=== PATIENT | female | born 1990 | race Caucasian/White ===

== ENCOUNTER 2017-11-06 04:29 | Inpatient (IN) ==
[~2017-11-06 04:29] MED LIST: *HR* Nalbuphine 10 MG/ML AMPUL IVP PRN; Famotidine 20 MG/2 ML VIAL IVP PRN; Lidocaine 1% 20 ML MDV INFILT PRN; Metoclopramide 10 MG/2 ML VIAL IVP PRN; Naloxone 0.4 MG/ML INJ IVP PRN; Ondansetron 4 MG/2 ML VIAL IVP PRN
[2017-11-06] MEDS ORDERED: Ringers Solution, Lactated 1,000 ML IVC SCH (04:30)
[2017-11-06 05:18] LABS: Basophils # 0.1 K/mcL (0.0-0.2); Basophils % 0.3 %; Eosinophils # 0.2 K/mcL (0.0-0.6); Eosinophils % 1.2 %; Hematocrit 41.6 % (35.3-44.9); Hemoglobin 14.6 g/dL (11.5-15.4); Immature Granulocytes % 0.6 % (0-4); Lymphocytes # 2.8 K/mcL (0.6-4.6); Lymphocytes % 17.3 %; Mean Corpuscular HGB Conc 35.1 g/dL (31.6-35.5); Mean Corpuscular Hemoglobin 31.7 pg (28.0-33.3); Mean Corpuscular Volume 90.4 fL (83.0-100.0); Mean Platelet Volume 11.3 fL (9.4-12.4); Monocytes # 0.9 K/mcL (0.0-1.3); Monocytes % 5.5 %; Platelet Count 252 K/mcL (140-400); Red Cell Distribution Width 12.2 % (11.5-14.5); Segmented Neutrophils % 75.1 %
[2017-11-06 05:35] LABS: Amphetamine Screen,Urine Negative ng/mL (Cutoff=1000); Barbiturate Screen,Urine Negative ng/mL (Cutoff=200); Benzodiazepines Screen,Urine Negative ng/mL (Cutoff=200); Cannabinoid Screen,Urine Negative ng/mL (Cutoff = 50); Cocaine Screen,Urine Negative ng/mL (Cutoff= 300); Opiate Screen,Urine Negative ng/mL (Cutoff=300); Phencyclidine Screen,Urine Negative ng/mL (Cutoff=25)
--- NOTE | 2017-11-06 05:45 | OB/GYN History & Physical ---
Date of Encounter: 11/06/17 Time of Encounter: 05:42 Assessment and Plan (1) 38 weeks gestation of Current visit: Yes Status: Acute (2) SROM (spontaneous rupture of membranes) Current visit: Yes Status: Acute Admit to labor and delivery Nubain and epidural as desired Pitocin if no change in 2 hours Anticipate History of Present Illness HPI: Ms. Coreas is a 27 year old female 38+3 weeks gestation presents to triage with complaints of rupture membranes at 1 AM. Spontaneous rupture membranes at clear fluid, reports good movement, occasional contractions, denies vaginal bleeding. care with Dr. Downs. course complicated with gap in care, [place]. Labs: A+, rubella and varicella immune, GBS negative, all other serologies negative Past Med Surg Social Fam HX - Past Medical History Medical history: no medical history Psychiatric history: anxiety, depression - Past Surgical History Additional surgical history: T&A - Social History Smoking Status: Current every day smoker Packs per day: 1.5ppd Smokeless Tobacco Status: No Alcohol use: none Drug use: none - Family History Sister Age: 30 Hx Family Neuromuscular Disorders: Yes (herinated disk) Obstetrical History - Pregnancies : 1 Para: 0 Term: 0 : 0 Ab's: 0 Livin Medications and Allergies Vit Calc,Iron,Folic [ Vitamins] 11/06/17 [History] 3 Allergy/AdvReac Type Severity Reaction Status Date / Time Amoxicillin [From Augmentin] Allergy See Verified 11/06/17 04:39 Comments clavulanic acid Allergy See Verified 11/06/17 04:39 [From Augmentin] Comments Exam - Constitutional Constitutional: well developed, well nourished, no acute distress, average body habitus - Neck Neck exam: full ROM - Lungs Respiratory exam: CTAB - Cardiovascular Cardiovascular exam: RRR - Abdomen Abdomen: Present: gravid, non tender - Extremities Extremities exam: normal capillary refill, normal inspection Deep Tendon Reflex Grade: 2+ Normal - Cervix Dilation: 4 (Per RN) Effacement: 90 Results Result Diagrams: 11/06/17 04:40 Abnormal lab results WBC 16.0 K/mcL (4.3-11.1) H 11/06/17 04:40 Neutrophils # 12.0 K/mcL (1.6-8.9) H 11/06/17 04:40 All other labs normal. - VTE Reasons for not Prescribing Prophylaxis: Treatment not Indicated - Low risk for VTE
[2017-11-06 06:15] LABS: Alanine Aminotransferase 8 Units/L (7-52); Aspartate Amino Transferase 11 Units/L (13-39); BUN/Creatinine Ratio 17 (6-26); Blood Urea Nitrogen 9 mg/dL (6-20); Lactate Dehydrogenase 114 Units/L (140-271); Uric Acid 5.3 mg/dL (2.3-7.6); eGFR For Non-African Americans > 60 (> 60)
[2017-11-06] MEDS ORDERED: Oxytocin 20 units/ LR 1000 mL 20 UNIT/1,000 ML BAG IVC SCH ×2 (08:15→11:28)
--- NOTE | 2017-11-06 11:07 | OB/GYN Procedure Note ---
Delivery - Delivery Date: 11/06/17 Provider: Hannah Hood Intrapartum events: none Delivery induction: none Delivery augmentation: pitocin Delivery monitor: external FHT, external uterine Anesthesia: intravenous Quantitated Blood Loss: 100 - (s) Infant A Delivery Date: 11/06/17 Infant Delivery Time: 10:23 Presentation: vertex Position: SILVIA Route of delivery: Gender: Male Viability: Viable Pounds: 6 Ounces: 10 Weight Gram: 2.995 kg at 1 minute: 7 at 5 mins: 9 Shoulder Dystocia: not encountered Specimens collected: cord blood Placenta: spontaneous Cord: 3 umbilical vessels - Repair Episiotomy: none Laceration Description: Vaginal (left vaginal wall) - Complications Delivery complications: none - Disposition Mom disposition: stable in LDR [place] disposition: stable in LDR - Comments Comments: Pt presented following SROM and her labor was augmented with pitocin. She progressed normally to for viable male infant "Pernell" weighing 6lbs 10oz with apgars 7 at one minute and 9 at five minutes. At four minutes of life the cord was clamped and cut and the placenta delivered spontaneous and intact. A small left vaginal laceration was noted and was repaired with 4-0 Monocryl suture. EBL 100ml. The delivery was uncomplicated and the mother and baby were stable following procedure.
[2017-11-06] MEDS ORDERED: Ibuprofen 600 MG TABLET PO PRN (11:28)
[2017-11-06] MEDS ORDERED: Acetaminophen 325 MG TABLET PO PRN (11:28)
[2017-11-06] MEDS ORDERED: Rho Immune Globulin 1,500 UNIT SYRINGE IM PRN (11:28)
[2017-11-06] MEDS ORDERED: Measles/Mumps/Rubella Vacc 0.5 ML VIAL SQ PRN (11:28)
[2017-11-07 05:34] LABS: Basophils # 0.1 K/mcL (0.0-0.2); Basophils % 0.2 %; Eosinophils # 0.1 K/mcL (0.0-0.6); Eosinophils % 0.7 %; Hematocrit 37.7 % (35.3-44.9); Immature Granulocytes % 0.6 % (0-4); Lymphocytes # 3.7 K/mcL (0.6-4.6); Lymphocytes % 17.5 %; Mean Corpuscular HGB Conc 34.5 g/dL (31.6-35.5); Mean Corpuscular Hemoglobin 31.9 pg (28.0-33.3); Mean Corpuscular Volume 92.6 fL (83.0-100.0); Mean Platelet Volume 11.3 fL (9.4-12.4); Monocytes # 1.2 K/mcL (0.0-1.3); Monocytes % 5.6 %; Neutrophils # 15.8 K/mcL (1.6-8.9); Platelet Count 210 K/mcL (140-400); Red Blood Count 4.07 M/mcL (3.82-4.97); Red Cell Distribution Width 12.3 % (11.5-14.5); Segmented Neutrophils % 75.4 %
[2017-11-07 07:33] VITALS: BP 114/76
[2017-11-07] MEDS ORDERED: Prenatal Vit/FA 1 EACH TABLET PO SCH (09:00)
--- NOTE | 2017-11-07 09:19 | OB/GYN Progress Note ---
Date of Encounter: 11/07/17 Time of Encounter: 09:17 - Assessment and Plan (1) Normal vaginal delivery Current Visit: Yes Status: Acute Subjective - Subjective Principal diagnosis: Interval history: Pt seen and examined at bedside Tolerating normal diet Voiding appropriately; Yet to have bowel movement Only notes mild pain with scant lochia - managed with motrin as needed Notes trouble with latch; plans to bottle feed Ambulating regularly Patient reports: appetite normal, voiding normally, pain well controlled, ambulating normally [place]: doing well, bottle feeding Objective - Latest Vital Signs Latest vital signs: Vital Signs Temp Pulse Pulse Resp BP Pulse Ox 11/07/17 07:32 98.5 F 67 16 114/76 11/07/17 04:27 98.6 F 64 70 14 124/79 98 11/06/17 20:29 80 16 11/06/17 19:25 98.5 F 83 16 131/80 98 11/06/17 14:56 98.4 F 79 16 119/75 97 11/06/17 14:45 16 11/06/17 13:45 98.4 F 81 16 120/77 98 11/06/17 13:09 16 11/06/17 12:51 98.2 F 71 16 127/84 98 Intake and Output 11/06/17 11/07/17 11/07/17 23:59 07:59 15:59 Intake Total 700 / 700 360 / 360 Output Total 300 / 300 1999 / 1999 Balance -300 / -300 -1300 / -1300 360 / 360 Intake: Oral 700 / 700 360 / 360 Output: Urine 300 / 300 1999 / 1999 Other: Meal Breakfast Percent of Meal Consumed 100% - Exam Lungs: bilateral: normal Chest: Normal S1, Normal S2 Extremities: Present: normal Abdomen: Present: normal appearance, soft, gravid Uterus: Present: normal - Labs Labs: Laboratory Results - last 24 hr 11/07/17 04:26 WBC 21.0 H RBC 4.07 Hgb 13.0 D Hct 37.7 MCV 92.6 MCH 31.9 MCHC 34.5 RDW 12.3 Plt Count 210 MPV 11.3 Immature Gran % 0.6 Seg Neutrophils % 75.4 Lymphocytes % 17.5 Monocytes % 5.6 Eosinophils % 0.7 Basophils % 0.2 Neutrophils # 15.8 H Lymphocytes # 3.7 Monocytes # 1.2 Eosinophils # 0.1 Basophils # 0.1
--- NOTE | 2017-11-07 09:23 | Discharge Summary ---
Date of Encounter: 11/07/17 Time of Encounter: 09:22 - Discharge Diagnosis (1) Normal vaginal delivery Priority: Primary Status: Acute Comments: Pt seen and examined at bedside; VSS Tolerating regular diet Voiding appropriately Lochia light Pain controlled with Motrin PRN Able to ambulate Plans to bottle feed Discharge home today - Discharge Medications Prescriptions: Ibuprofen [Motrin] 600 mg PO Q6HR PRN 14 Days #30 tablet PRN Reason: Cramping Docusate [Colace] 100 mg PO BID 14 Days #30 capsule Home Medications: Vit Calc,Iron,Folic [ Vitamins] 11/06/17 [History] Acetaminophen [Tylenol] 650 mg PO Q6HR PRN tablet 11/07/17 [Rx] Docusate [Colace] 100 mg PO BID 14 Days #30 capsule 11/07/17 [Rx] Ibuprofen [Motrin] 600 mg PO Q6HR PRN 14 Days #30 tablet 11/07/17 [Rx] Allergies/Adverse Reactions: 3 Allergy/AdvReac Type Severity Reaction Status Date / Time Amoxicillin [From Augmentin] Allergy See Verified 11/06/17 04:39 Comments clavulanic acid Allergy See Verified 11/06/17 04:39 [From Augmentin] Comments Data Procedures and tests throughout hospitalization: Laboratory Tests 11/06/17 11/06/17 11/06/17 04:40 04:40 05:41 WBC 16.0 H RBC 4.60 Hgb 14.6 Hct 41.6 MCV 90.4 MCH 31.7 MCHC 35.1 RDW 12.2 Plt Count 252 MPV 11.3 Immature Gran % 0.6 Seg Neutrophils % 75.1 Lymphocytes % 17.3 Monocytes % 5.5 Eosinophils % 1.2 Basophils % 0.3 Neutrophils # 12.0 H Lymphocytes # 2.8 Monocytes # 0.9 Eosinophils # 0.2 Basophils # 0.1 BUN 9 Creatinine 0.52 L Est GFR ( Amer) > 60 Est GFR (Non-Af Amer) > 60 BUN/Creatinine Ratio 17 Uric Acid 5.3 AST 11 L ALT 8 Lactate Dehydrogenase 114 L Urine Opiates Screen Negative Ur Barbiturates Screen Negative Ur Phencyclidine Scrn Negative Ur Amphetamines Screen Negative U Benzodiazepines Scrn Negative Urine Cocaine Screen Negative U Marijuana (THC) Screen Negative Ur Drug Screen Interp See Below 11/07/17 04:26 WBC 21.0 H RBC 4.07 Hgb 13.0 D Hct 37.7 MCV 92.6 MCH 31.9 MCHC 34.5 RDW 12.3 Plt Count 210 MPV 11.3 Immature Gran % 0.6 Seg Neutrophils % 75.4 Lymphocytes % 17.5 Monocytes % 5.6 Eosinophils % 0.7 Basophils % 0.2 Neutrophils # 15.8 H Lymphocytes # 3.7 Monocytes # 1.2 Eosinophils # 0.1 Basophils # 0.1 BUN Creatinine Est GFR ( Amer) Est GFR (Non-Af Amer) BUN/Creatinine Ratio Uric Acid AST ALT Lactate Dehydrogenase Urine Opiates Screen Ur Barbiturates Screen Ur Phencyclidine Scrn Ur Amphetamines Screen U Benzodiazepines Scrn Urine Cocaine Screen U Marijuana (THC) Screen Ur Drug Screen Interp Labs on day of discharge: Labs from last 24 hours 11/07/17 04:26 WBC 21.0 H RBC 4.07 Hgb 13.0 D Hct 37.7 MCV 92.6 MCH 31.9 MCHC 34.5 RDW 12.3 Plt Count 210 MPV 11.3 Immature Gran % 0.6 Seg Neutrophils % 75.4 Lymphocytes % 17.5 Monocytes % 5.6 Eosinophils % 0.7 Basophils % 0.2 Neutrophils # 15.8 H Lymphocytes # 3.7 Monocytes # 1.2 Eosinophils # 0.1 Basophils # 0.1 Date of admission: 11/06/17 04:29 Primary care physician: Niyah Roman CNP Consults: 11/06/17 11:28 Consult to Fence Making Machine Operator [CONS] Routine Comment: Vaginal delivery, consult needed Discharging clinician: Johana Wagner Anticipated date of discharge: 11/07/17 - Patient Status Disposition: Home, Self-Care Condition: Good Functional capacity at discharge: independent ambulation Overall status at discharge: patient is progressing back to baseline - Discharge Instructions Instructions: Vaginal Delivery (DC) Follow Up With: Niyah Roman CNP [Primary Care Provider] - Emigdio Downs DO [Partnered Physician] - Additional Instructions: Perineal Care: Always wipe front to back Change your pad frequently Use your [place] bottle with warm water and spray front to back Do not douche, use tampons, have sexual intercourse or put anything in your vagina for 4-6 weeks after delivery Bleeding: Vaginal bleeding can last up to 6 weeks Your menstrual period may return as early as 6 weeks after you are discharged from the hospital [place]/Stitches Care: Vaginal Delivery Vaginal stitches will dissolve within 4-6 weeks Follow perineal care instructions Care Stitches will dissolve on their own If you have jossie, they will need to be removed in the doctors office within 5-7 days. You may shower with stitches or jossie Drip plan or soapy water over the incision to clean. Pat dry gently with a clean towel. Make sure you completely dry under the skin folds DO NOT USE powders, lotions, rubbing alcohol or hydrogen peroxide on or around your incision. This will slow your wound healing It is normal to have soreness, burning, tingling, itchiness and/or numbness as your incision heals Activity: Rest frequently Do not lift anything heavier than a gallon of milk, up to 10-15 pounds No driving for 1-2 weeks for Vaginal delivery No driving for 2-4 weeks for delivery Take stairs slowly, one at a time Gradually increase your daily activity until you are back to your normal routine Do not exercise until you have had your follow-up appointment Bathing: Take a shower daily Do not take a tub bath for the first 4 weeks Diet: Drink plenty of water and fruit juices Eat a well-balanced diet with foods high in fiber such as fruits and vegetables Depression: Your hormones have a major impact on your feelings and emotions. Hormone imbalance may cause changes in your mood, creating unfamiliar thoughts and actions. Support is available to help you understand and cope with these feelings and mood changes. If you answer yes to any of the following questions, please call your health care provider: Are you having trouble sleeping? Are you feeling isolated? Have you lost your appetite? Are you having thoughts of hurting yourself or others? WARNING SIGNS: Heavy bleeding from the vagina (blood is bright red and soaks a sanitary pad in an hour or less.) Passing a blood clot larger than your fist Discharge from the vagina that has a bad odor Temperature over 100.4 F, or if you feel cold and have chills An episiotomy site that is warm, swollen or oozing. Use a mirror if needed Urination (pee) that is painful, very red and swollen or leaking fluid An incision that is painful, very red and swollen and leaking fluid An incision that has come open Breasts that are painful or full with flu like symptoms Redness, warmth or swelling in the calf of your leg Trouble breathing, dizziness, visual disturbance or faintness *Notify your health care provider immediately or go to the nearest Emergency Room if you experience any of the above signs.* To contact the nurses station 24 hours a day, For non-urgent, routine questions, please call the office at - Diet and Activity Activity: resume usual activities as tolerated Diet: regular diet Hospital Course Reason for admission: active labor Delivery: Episiotomy: none Laceration: vaginal side wall Other procedures: none complications: none Discharge diagnosis: IUP at term delivered [place] baby: male Hospital course: Pt presented at 38 weeks 3 days with SROM. Normal course of labor with repaired left vaginal laceration 6lbs 10oz infant born with Apgars 7 and 9 at 1min and 5min respectively Plan to discharge home Time Attestation: Total time spent providing and/or coordinating discharge services: Time Spent: Less than 30 minutes Exam - Constitutional Vitals: Temp Pulse Resp BP Pulse Ox 98.5 F 67 16 114/76 98 11/07/17 07:32 11/07/17 07:32 11/07/17 07:32 11/07/17 07:32 11/07/17 04:27 General appearance IM: A&O X 3, pleasant, no acute distress - Respiratory Respiratory exam: Present: CTAB - Cardiovascular Cardiovascular exam IM: Present: RRR, +S1, +S2 - GI/Abdominal GI/Abdominal exam IM: normal bowel sounds, soft, no peritoneal signs - Rectal Rectal exam: deferred - Uterine Tone: Firm Uterus Position: At Umbilicus, Midline - Extremities Exam Extremities exam IM: Present: full ROM, normal capillary refill, normal inspection, radial pulses palpable and symmetrical - Neurological Exam Neurological exam: alert, CN II-XII intact, oriented X3 - Psychiatric Additional comments: Signs and symptoms of depression discussed Pt verbalizes understanding of when to seek help - Attending Attestation I have seen and examined the patient and agree with the above. Thom Meyers CNM
== END 2017-11-07 12:27 | disposition home or self-care (01) | DRG 560 ==
LOC: 1NENULAB → 1NENUOBS 11:40
PROVIDERS: ADMIT Advanced Practice Midwife; ATTEND Advanced Practice Midwife